=== PATIENT | female | born 1930 | race African-American/Black ===

== ENCOUNTER → 2017-02-05 | Outpatient (CLI) | payer BC ==
[~2017-02-05] MED LIST: ASPI-1159 PO; ATOR10TA69 PO; LANS30CA55 PO; SOLI10TA PO; SOTA80TA PO
== END | disposition home or self-care (01) ==
LOC: RAD 14:03
PROVIDERS: ATTEND Family Medicine
DX: M41.45 Neuromuscular scoliosis, thoracolumbar region (principal); R07.89 Other chest pain
CPT/HCPCS: 71111

== ENCOUNTER 2019-10-20 18:55 | Inpatient (IN) | payer BC ==
[~2019-10-20] VITALS: Ht 149.9 cm; Wt 44.1 kg
[~2019-10-20 18:55] MED LIST changes: -ASPI-1159 PO; +ASPI-1497 PO; +LIFI1DRO EACHEYE
[2019-10-20 19:00] VITALS: BP 104/65
[2019-10-20 20:00] VITALS: BP 104/65
[2019-10-20] MEDS ORDERED: ONDANSETRON HCL 4MG TABLET PO PRN (20:15)
[2019-10-20] MEDS ORDERED: ACETAMINOPHEN 325MG TABLET PO PRN (20:15)
[2019-10-20] MEDS ORDERED: MECLIZINE 25MG TABLET PO PRN (20:15)
[2019-10-21 05:12] LABS: CHLORIDE 97 mEq/L (98-107)
[2019-10-21] MEDS: FAMOTIDINE 20MG TABLET PO SCH (05:23)
[2019-10-21 07:33] VITALS: BP 119/78
[2019-10-21] MEDS: DOCUSATE SODIUM 250MG CAPSULE PO SCH (08:30)
[2019-10-21] MEDS: POLYVINYL ALCOHOL OPHTH DROPS 15ML BOTHEYE SCH ×2 (09:00→16:07)
[2019-10-21 12:38] LABS: HEMATOCRIT 41.5 % (36.0-48.0); HEMOGLOBIN 13.7 g/dL (12.0-16.0); MEAN CORPUSCULAR HEMOGLOBIN 29.7 pg (28.0-32.0); PLATELET 199 x1000/uL (130-400); RED BLOOD CELL COUNT 4.61 mill/uL (4.2-5.4); RED CELL DISTRIBUTION WIDTH 14.8 % (11.6-14.6)
[2019-10-21 19:07] LABS: CLARITY URINE CLEAR (CLEAR); COLOR URINE YELLOW (YELLOW); KETONES URINE NEGATIVE (NEGATIVE); LEUKOCYTE ESTERASE URINE NEGATIVE (NEGATIVE); NITRITE URINE NEGATIVE (NEGATIVE); OCCULT BLOOD URINE NEGATIVE (NEGATIVE); PH URINE 5.5 (4.5-8.0); PROTEIN URINE NEGATIVE (NEGATIVE); UROBILINOGEN URINE 0.2 E.U./dL (0.2-1.0)
[2019-10-21 20:00] VITALS: BP 104/70
[2019-10-22 02:13] VITALS: BP_SYST 104; BP_SYST 123; BP_SYST 90; BP_DIAS 58; BP_DIAS 73; BP_DIAS 82
[2019-10-22 06:02] LABS: CHLORIDE 93 mEq/L (98-107)
[2019-10-22 06:10] LABS: LDL CHOLESTEROL 70 mg/dL (5-100)
[2019-10-22 06:12] LABS: HDL CHOLESTEROL 91 mg/dL (40-59); TOTAL IRON BINDING CAPACITY 299 ug/dL (250-450)
[2019-10-22 06:13] LABS: PHOSPHORUS 3.9 mg/dL (2.5-4.9)
[2019-10-22 06:34] LABS: BASOPHILS % 0.6 % (0.0-2.0); EOSINOPHILS % 1.4 % (0.0-5.0); HEMATOCRIT. 38.6 % (36.0-48.0); HEMOGLOBIN. 12.8 g/dL (12.0-16.0); LYMPHOCYTES % 49.3 % (20.0-50.0); MEAN CORPUSCULAR HEMOGLOBIN 29.9 pg (28.0-32.0); MEAN PLATELET VOLUME 8.3 fl (7.4-10.4); MONOCYTES % 12.3 % (2.0-8.0); NEUTROPHILS % 36.4 % (40.0-76.0); PLATELET 189 x1000/uL (130-400); RED BLOOD CELL COUNT 4.29 mill/uL (4.2-5.4); RED CELL DISTRIBUTION WIDTH 14.9 % (11.6-14.6)
[2019-10-22] MEDS: FAMOTIDINE 20MG TABLET PO SCH (06:36)
[2019-10-22 07:49] VITALS: BP 149/79
[2019-10-22] MEDS: DOCUSATE SODIUM 250MG CAPSULE PO SCH (08:40)
[2019-10-22] MEDS: CYANOCOBALAMIN 1000MCG/ML VIAL IM SCH (08:44)
[2019-10-22] MEDS: POLYVINYL ALCOHOL OPHTH DROPS 15ML BOTHEYE SCH ×2 (08:44→18:56)
[2019-10-22 20:00] VITALS: BP 95/54
[2019-10-23] MEDS: FAMOTIDINE 20MG TABLET PO SCH (06:10)
[2019-10-23 07:23] VITALS: BP 102/60
[2019-10-23] MEDS: POLYVINYL ALCOHOL OPHTH DROPS 15ML BOTHEYE SCH ×2 (08:19→16:20)
[2019-10-23] MEDS: CYANOCOBALAMIN 1000MCG/ML VIAL IM SCH (08:20)
[2019-10-23] MEDS: DOCUSATE SODIUM 250MG CAPSULE PO SCH (08:20)
[2019-10-23 17:51] LABS: BASOPHILS % 0.8 % (0.0-2.0); EOSINOPHILS % 0.7 % (0.0-5.0); HEMATOCRIT. 37.2 % (36.0-48.0); HEMOGLOBIN. 12.4 g/dL (12.0-16.0); LYMPHOCYTES % 41.6 % (20.0-50.0); MEAN CORPUSCULAR VOLUME 90.2 fL (81.0-99.0); MEAN PLATELET VOLUME 8.2 fl (7.4-10.4); MONOCYTES % 13.6 % (2.0-8.0); NEUTROPHILS % 43.3 % (40.0-76.0); PLATELET 194 x1000/uL (130-400); RED BLOOD CELL COUNT 4.12 mill/uL (4.2-5.4); RED CELL DISTRIBUTION WIDTH 14.8 % (11.6-14.6)
[2019-10-23 18:01] LABS: CHLORIDE 93 mEq/L (98-107)
[2019-10-23 19:56] VITALS: BP 93/54
[2019-10-24] MEDS: FAMOTIDINE 20MG TABLET PO SCH (06:02)
[2019-10-24 07:24] LABS: BASOPHILS % 1.3 % (0.0-2.0); EOSINOPHILS % 1.6 % (0.0-5.0); HEMATOCRIT. 37.1 % (36.0-48.0); HEMOGLOBIN. 12.2 g/dL (12.0-16.0); LYMPHOCYTES % 45.5 % (20.0-50.0); MEAN CORPUSCULAR HEMOGLOBIN 29.3 pg (28.0-32.0); MEAN CORPUSCULAR VOLUME 89.2 fL (81.0-99.0); MEAN PLATELET VOLUME 7.7 fl (7.4-10.4); MONOCYTES % 13.9 % (2.0-8.0); NEUTROPHILS % 37.7 % (40.0-76.0); PLATELET 199 x1000/uL (130-400); RED BLOOD CELL COUNT 4.15 mill/uL (4.2-5.4); RED CELL DISTRIBUTION WIDTH 14.7 % (11.6-14.6)
[2019-10-24 07:31] LABS: CHLORIDE 95 mEq/L (98-107)
[2019-10-24 08:07] VITALS: BP 124/68
[2019-10-24] MEDS: CYANOCOBALAMIN 1000MCG/ML VIAL IM SCH (08:39)
[2019-10-24] MEDS: POLYVINYL ALCOHOL OPHTH DROPS 15ML BOTHEYE SCH ×2 (08:39→16:57)
[2019-10-24] MEDS: DOCUSATE SODIUM 250MG CAPSULE PO SCH (08:39)
[2019-10-24 20:00] VITALS: BP 137/79
[2019-10-25] MEDS: FAMOTIDINE 20MG TABLET PO SCH (06:06)
[2019-10-25 07:55] VITALS: BP 97/60
[2019-10-25] MEDS ORDERED: NA PHOS,M-B/NA PHOS,DI-BA ENEMA 118ML PR PRN (08:30)
[2019-10-25] MEDS ORDERED: BISACODYL 5MG TABLET PO PRN (08:30)
[2019-10-25] MEDS ORDERED: LACTULOSE 20G/30ML UDC PO PRN (08:30)
[2019-10-25] MEDS: DOCUSATE SODIUM 250MG CAPSULE PO SCH (10:39)
[2019-10-25] MEDS: POLYVINYL ALCOHOL OPHTH DROPS 15ML BOTHEYE SCH ×2 (10:40→16:42)
[2019-10-25 20:05] VITALS: BP 108/61
[2019-10-26] MEDS: FAMOTIDINE 20MG TABLET PO SCH (06:23)
[2019-10-26 06:48] LABS: HEMATOCRIT. 34.5 % (36.0-48.0); HEMOGLOBIN. 11.6 g/dL (12.0-16.0); MEAN CORPUSCULAR HEMOGLOBIN 30.1 pg (28.0-32.0); MEAN CORPUSCULAR VOLUME 89.5 fL (81.0-99.0); PLATELET 157 x1000/uL (130-400); RED BLOOD CELL COUNT 3.85 mill/uL (4.2-5.4); RED CELL DISTRIBUTION WIDTH 15.1 % (11.6-14.6)
[2019-10-26 07:51] VITALS: BP 110/65
[2019-10-26] MEDS: DOCUSATE SODIUM 250MG CAPSULE PO SCH (08:03)
[2019-10-26] MEDS: POLYVINYL ALCOHOL OPHTH DROPS 15ML BOTHEYE SCH ×2 (08:05→16:25)
[2019-10-26 08:44] LABS: CHLORIDE 100 mEq/L (98-107)
[2019-10-26 10:47] LABS: PLATELET ESTIMATE NORMAL
[2019-10-26 20:00] VITALS: BP_SYST 103; BP_SYST 104; BP_SYST 117; BP_DIAS 61; BP_DIAS 68; BP_DIAS 72
[2019-10-27] MEDS: FAMOTIDINE 20MG TABLET PO SCH (06:35)
[2019-10-27 07:42] VITALS: BP 113/69
[2019-10-27] MEDS: DOCUSATE SODIUM 250MG CAPSULE PO SCH (08:17)
[2019-10-27] MEDS: POLYVINYL ALCOHOL OPHTH DROPS 15ML BOTHEYE SCH ×2 (08:17→16:28)
[2019-10-27] MEDS ORDERED: OMEP20CA14 MT (14:58)
[2019-10-27] MEDS ORDERED: DOCU250C14 PO (14:58)
[2019-10-27] MEDS ORDERED: ATOR10TA69 PO (14:58)
[2019-10-27 20:00] VITALS: BP_SYST 115; BP_SYST 118; BP_DIAS 68
[2019-10-28] MEDS: FAMOTIDINE 20MG TABLET PO SCH (06:13)
[2019-10-28 08:18] VITALS: BP 115/66
[2019-10-28] MEDS: POLYVINYL ALCOHOL OPHTH DROPS 15ML BOTHEYE SCH (08:39)
[2019-10-28] MEDS: DOCUSATE SODIUM 250MG CAPSULE PO SCH (08:39)
[2019-10-28 11:35] VITALS: BP 115/66
[2019-10-31 04:07] LABS: 25-HYDROXY VITAMIN D3 7.8 ng/mL (.)
== END 2019-10-28 14:17 | disposition home health service (06) | DRG 91 ==
PROVIDERS: ADMIT Physical Medicine & Rehabilitation Spinal Cord Injury Medicine; ATTEND Internal Medicine
DX: G14 Postpolio syndrome (principal); G82.50 Quadriplegia, unspecified; K92.2 Gastrointestinal hemorrhage, unspecified; E44.1 Mild protein-calorie malnutrition; E87.1 Hypo-osmolality and hyponatremia; E87.2 Acidosis; Z68.1 Body mass index [BMI] 19.9 or less, adult; I10 Essential (primary) hypertension; J40 Bronchitis, not specified as acute or chronic; J98.4 Other disorders of lung; K21.9 Gastro-esophageal reflux disease without esophagitis; K59.00 Constipation, unspecified; M19.90 Unspecified osteoarthritis, unspecified site; M21.70 Unequal limb length (acquired), unspecified site; M41.9 Scoliosis, unspecified; M71.20 Synovial cyst of popliteal space [Baker], unspecified knee; Z96.641 Presence of right artificial hip joint; E78.00 Pure hypercholesterolemia, unspecified; E78.5 Hyperlipidemia, unspecified; E87.5 Hyperkalemia; E87.8 Other disorders of electrolyte and fluid balance, not elsewhere classified; R26.2 Difficulty in walking, not elsewhere classified; I87.2 Venous insufficiency (chronic) (peripheral); R42 Dizziness and giddiness; Z60.2 Problems related to living alone; R20.0 Anesthesia of skin; R26.89 Other abnormalities of gait and mobility; Z82.49 Family history of ischemic heart disease and other diseases of the circulatory system; Z87.01 Personal history of pneumonia (recurrent); Z91.81 History of falling; Z91.041 Radiographic dye allergy status; Z79.899 Other long term (current) drug therapy; Z79.82 Long term (current) use of aspirin
CPT/HCPCS: 36415; 71046; 74018; 80048; 80053; 80061; 81003; 82306; 82533; 82607; 82728; 82746; 83036; 83540; 83550; 83735; 83930; 83935; 84100; 84134; 84443; 85025; 85027; 92523; 92610; 93970; 97110; 97112; 97116; 97162; 97166; 97530; 97535; J3420